=== PATIENT | female | born 1985 | race Caucasian/White ===

== ENCOUNTER → 2018-09-07 | Outpatient (CLI) | payer OTHER ==
[2015-08-14 20:00] VITALS: BP 111/78
[~2018-09-07] MED LIST: BIRTH CONTROL PO; LORA10TA68 PO; OMEP20CA5 PO; ONDA4TAB10 SL; PROBIOTICS PO; TRAM50TA PO
--- NOTE | 2018-09-07 09:16 | RAD ---
DATE: 09/07/2018 EXAM: DIGITAL DIAGNOSTIC BILATERAL, BREAST RIGHT HISTORY: Palpable abnormality at the right breast 12:00 region which was first noted in January COMPARISON: None. This is the first mammogram. This study was interpreted with the benefit of Computerized Aided Detection (CAD). Breast Density: SCATTERED The breast parenchyma shows scattered fibroglandular densities. Breast parenchyma level B. FINDINGS: BB-marker was placed at the right upper breast 12:00 region near the nipple where a palpable abnormalities reported. Minimal benign calcification is present bilaterally. No mass or distortion. Bilateral axillary lymph nodes are benign in appearance. Limited right breast ultrasound exam was performed at the 12:00 region. No mass or cyst. The breast appears normal at this site of reported palpable abnormality. IMPRESSION: Normal. There is no suspicious imaging finding. Clinical management is recommended in determining the need for biopsy. BI-RADS CATEGORY: 2 BENIGN FINDING(S) RECOMMENDED FOLLOW-UP: CLIN FOLLOW UP IMAGING CLINICALLY INDICATED PQRS compliance statement: Patient information was entered into a reminder system with a target due date 08/08/2022 for the next mammogram. Mammography is a sensitive method for finding small breast cancers, but it does not detect them all and is not a substitute for careful clinical examination. A negative mammogram does not negate a clinically suspicious finding and should not result in delay in biopsying a clinically suspicious abnormality. "Our facility is accredited by the [employer] Mammography Program."
== END | disposition home or self-care (01) ==
LOC: US 07:47
PROVIDERS: ATTEND Obstetrics & Gynecology
DX: R92.8 Other abnormal and inconclusive findings on diagnostic imaging of breast (principal)
CPT/HCPCS: 76641; 77066

== ENCOUNTER → 2020-05-21 | Outpatient (CLI) | payer OTHER ==
[2015-08-14 20:00] VITALS: BP 111/78
--- NOTE | 2020-05-21 10:31 | RAD ---
PROCEDURE: TIBIA FIBULA RIGHT, ANKLE RIGHT 3V STUDY DATE: 05/21/2020 CLINICAL INDICATION / HISTORY: Reason: PAIN, S/P FALL / Spl. Instructions: / History: . TECHNIQUE: AP and lateral views of the right tibia and fibula. COMPARISON: None FINDINGS: AP and lateral views of the right tibia and fibula show no acute fracture, dislocation or bone destruction. The soft tissues are normal. IMPRESSION: Normal right tibia and fibula. PROCEDURE: TIBIA FIBULA RIGHT, ANKLE RIGHT 3V STUDY DATE: 05/21/2020 CLINICAL INDICATION / HISTORY: Reason: PAIN, S/P FALL / Spl. Instructions: / History: . TECHNIQUE: Right ankle 3 views. COMPARISON: None FINDINGS: The ankle mortise is approximated, and the talar dome is unremarkable. The joint space widths are maintained. No fracture or dislocation is identified. No soft tissue swelling is appreciated. IMPRESSION: No acute osseous abnormality. Electronically signed by: Tesha House MD (05/21/2020 10:28 AM) [id number]
== END | disposition home or self-care (01) ==
LOC: PMG 08:04
PROVIDERS: ATTEND Family Medicine
DX: M79.604 Pain in right leg (principal); Z68.31 Body mass index [BMI] 31.0-31.9, adult
CPT/HCPCS: 73590; 73610

== ENCOUNTER → 2021-08-27 | Outpatient (CLI) | payer OTHER ==
[2015-08-14 20:00] VITALS: BP 111/78
--- NOTE | 2021-08-27 13:00 | RAD ---
XR FOOT_LEFT 3 VIEWS DATE: 08/27/2021 10:55 AM INDICATION: FOOT PAIN X 4 DAYS, NKI COMPARISON: None. FINDINGS: Bones: There is no evidence of acute fracture or dislocation. Joints: The joint spaces are normal. Miscellaneous: None. IMPRESSION: Normal osseous structures Electronically signed by: Isrrael Joya MD (08/27/2021 12:58 PM) [facility]
== END ==
LOC: RAD 10:51
PROVIDERS: ATTEND Physician Assistant
DX: M79.672 Pain in left foot (principal); M25.572 Pain in left ankle and joints of left foot
CPT/HCPCS: 73630